=== PATIENT | male | born 1995 | race Two or more races ===

== ENCOUNTER 2022-07-26 23:57 | Emergency (ER) | payer OTHER ==
[~2022-07-26] VITALS: Ht 193 cm; Wt 113.0 kg
[2022-07-27] MEDS ORDERED: IBUPROFEN 800 MG TAB PO ONE (00:15)
[2022-07-27 00:36] VITALS: BP 126/88
[2022-07-27] MEDS ORDERED: IBUP-1456 PO (01:32)
== END 2022-07-27 01:33 | disposition home or self-care (01) ==
LOC: EEVIPCON 07-27 → ER 07-27
DX: S60.221A Contusion of right hand, initial encounter (principal); Z88.8 Allergy status to other drugs, medicaments and biological substances; W51.XXXA Accidental striking against or bumped into by another person, initial encounter; Y93.89 Activity, other specified; Y92.89 Other specified places as the place of occurrence of the external cause; Y99.8 Other external cause status
CPT/HCPCS: 73130